=== PATIENT | female | born 1950 | race Caucasian/White ===

== ENCOUNTER → 2017-04-16 | Outpatient (CLI) | payer MEDICARE, MEDICAID ==
--- NOTE | 2017-04-16 16:35 | RAD ---
Procedure: XR CHEST 2 VIEWS Exam Date: 04/16/2017 3:20 PM CDT Ordering Provider: Keisha Rhodes Clinical Indication: ACUTE EXACERBATION OF COPD Comparison: None Findings: Lungs are hyperexpanded. No lobar consolidation, pleural effusion, or pneumothorax. Heart size is within normal limits. No acute osseous abnormality. Impression: COPD. No acute airspace disease. Electronically signed by: Doroteo Alcocer MD 04/16/2017 4:35 PM CDT
== END ==
LOC: YCFC.O 15:12
PROVIDERS: ATTEND Nurse Practitioner Family
DX: J44.1 Chronic obstructive pulmonary disease with (acute) exacerbation (principal)

== ENCOUNTER → 2017-09-23 | Outpatient (CLI) | payer MEDICARE, MEDICAID ==
--- NOTE | 2017-09-24 04:46 | RAD ---
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 Mild degenerative changes of the acromioclavicular joint. Unremarkable glenohumeral joint. Electronically signed by: Dillon Meyer MD 09/24/2017 4:45 AM RECEIVING TANK OPERATOR
== END | disposition home or self-care (01) ==
LOC: LAB.O 14:20
DX: M25.50 Pain in unspecified joint (principal); M25.512 Pain in left shoulder

== ENCOUNTER → 2017-12-08 | Outpatient (CLI) | payer MEDICARE, MEDICAID ==
--- NOTE | 2017-12-10 08:18 | RAD ---
History: COPD. Chest x-ray: PA and lateral views are compared with April 2017 study. Patchy atelectasis or scarring is present in the left lower lung, grossly stable. Lung volumes are well maintained with diminished pulmonary markings left upper lung, stable. No airspace disease is identified. No significant pleural effusion is seen. The cardiomediastinal silhouette is normal. Diffuse osteopenia is apparent. IMPRESSION: Stable chest since 04/2017. Electronically signed by: Jesenia Townsend MD 12/10/2017 8:17 AM [facility] Workstation: [facility]
== END ==
LOC: YCFC.O 11:55
DX: J44.1 Chronic obstructive pulmonary disease with (acute) exacerbation (principal)

== ENCOUNTER 2018-06-10 16:10 | Emergency (ER) | payer MEDICARE, MEDICAID ==
[2018-06-10 16:30] VITALS: BP 124/67; TEMP 99; O2SAT 95
--- NOTE | 2018-06-10 16:55 | ED.PDOC ---
History of Present Illness - General Chief Complaint: Skin/Abrasion/Tear Stated Complaint: Cut to right hand Time Seen by Provider: 06/10/18 16:55 Source: patient Exam Limitations: no limitations - History of Present Illness Initial Comments: Kendy Jean 67 y/o female struck a chain link fence accidentally and had tiny skin laceratin top of her right hand with burning pain. Timing/Duration: just prior to arrival Severity: mild Location: hands - right Improving Factors: nothing Worsening Factors: nothing Associated Symptoms: other - skin tear Allergies/Adverse Reactions: Allergies Coconut Oil Allergy (Verified 02/17/16 12:24) Hives Pregabalin [From Lyrica] Allergy (Verified 06/10/18 16:31) Other Hallucinations scorpions Allergy (Uncoded 02/17/16 12:24) Other Paralysis sx's. Tegaderm Allergy (Uncoded 06/10/18 16:32) Rash Home Medications: Ambulatory Orders Duloxetine HCl 90 mg PO DAILY 11/24/14 Pravastatin Sodium [Pravachol] 40 mg PO BEDTIME 11/24/14 Buspirone HCl 15 mg PO DAILY PRN 11/30/15 Fluticasone Propionate (Nasal) [Fluticasone Propionate] 50 mcg NA DAILY HYDROcodone 10MG/APAP 325MG [[place] 10/325] 10 tab PO PRN PRN 11/30/15 Tiotropium [place] Monohydrate [Spiriva Respimat] 2.5 mcg IN PRN PRN 11/30/15 Zolpidem Tartrate 10 mg PO BEDTIME 11/30/15 Review of Systems - Review of Systems Constitutional: States: no symptoms reported EENTM: States: no symptoms reported Respiratory: States: no symptoms reported Skin: States: see HPI All other Systems: Reviewed and Negative, No Change from Baseline Past Medical History (General) - Patient Medical History Hx Seizures: No Hx Stroke: No Hx Dementia: No Hx Asthma: No Hx of COPD: No Hx Cardiac Disorders: Yes - hypercholesterolemia Hx Congestive Heart Failure: No Hx Pacemaker: No Hx Hypertension: Yes Hx Thyroid Disease: No Hx Diabetes: No Hx Gastroesophageal Reflux: Yes Hx Renal Disease: No Hx Cancer: Yes - Melanoma removed 2018 Hx of HIV: No Hx Hepatitis C: No Hx MRSA: No Surgical History: appendectomy, other - excision melanoma,hysterectomy - Vaccination History Hx Tetanus, Diphtheria Vaccination: - 06/10/18 Hx Influenza Vaccination: Yes - 2016 Hx Pneumococcal Vaccination: Yes - 2014 - Social History Hx Tobacco Use: Yes Hx Chewing Tobacco Use: No Hx Alcohol Use: No Hx Substance Use: No Hx Depression: Yes Hx Physical Abuse: No Hx Emotional Abuse: No Hx Suspected Abuse: No - Female History Patient : No Family Medical History - Family History Mother Living Status: Hx Family Hypertension: Yes Hx Cardiac Disease: Yes - parents Father Living Status: Hx Family Hypertension: Yes Hx Family Cancer: Yes - skin cancer Physical Exam - Physical Exam General Appearance: Alert, Comfortable, No apparent distress Eyes, Ears, Nose, Throat Exam: normal ENT inspection Neck: non-tender, full range of motion, supple, normal inspection Cardiovascular/Chest: normal peripheral pulses, regular rate, rhythm, no murmur Respiratory: chest non-tender, lungs clear Gastrointestinal/Abdominal: non tender, soft Back Exam: normal inspection, no CVA tenderness Extremity: non-tender, no calf tenderness Neurologic: alert, oriented x 3 Skin Exam: warm/dry, normal color Skin Problem Location: other - hand right Skin Character: other - skin tear Progress - Progress Progress: 06/10/18 17:07 Vital Signs - 8 hr 06/10/18 16:20 Temperature 99.0 F Pulse Rate [ 85 Left Radial] Respiratory 18 Rate Blood Pressure 124/67 [Right Arm] O2 Sat by Pulse 95 Oximetry 06/10/18 17:08 skintear cleanse with sterile saline covered with band aid Departure - Departure Clinical Impression: Skin tear of hand without complication Qualifiers: Encounter type: initial encounter Laterality: right Qualified Code(s): S61.411A - Laceration without foreign body of right hand, initial encounter Time of Disposition: 17:09 Disposition: Discharge to Home or Self Care Condition: Fair Departure Forms: ED Discharge - Pt. Copy, Patient Portal Self Enrollment Instructions: Wound Care (DC) Referrals: Yves Delaney MD [Primary Care Provider] - 1-2 Weeks Home Medications: Ambulatory Orders Duloxetine HCl 90 mg PO DAILY 11/24/14 Pravastatin Sodium [Pravachol] 40 mg PO BEDTIME 11/24/14 Buspirone HCl 15 mg PO DAILY PRN 11/30/15 Fluticasone Propionate (Nasal) [Fluticasone Propionate] 50 mcg NA DAILY HYDROcodone 10MG/APAP 325MG [[place] 10/325] 10 tab PO PRN PRN 11/30/15 Tiotropium [place] Monohydrate [Spiriva Respimat] 2.5 mcg IN PRN PRN 11/30/15 Zolpidem Tartrate 10 mg PO BEDTIME 11/30/15 Additional Instructions: Follow up with primary Md 14 June 2018 as needed
[2018-06-10] MEDS ORDERED: TETANUS,DIPHTHERIA,PERTUSSIS 1 EA SYG IM ONE (17:08)
== END 2018-06-10 17:40 | disposition home or self-care (01) ==
LOC: ER 16:10
DX: S61.411A Laceration without foreign body of right hand, initial encounter (principal); Z23 Encounter for immunization; I10 Essential (primary) hypertension; E78.00 Pure hypercholesterolemia, unspecified; Z85.828 Personal history of other malignant neoplasm of skin; Z87.891 Personal history of nicotine dependence; W22.8XXA Striking against or struck by other objects, initial encounter; Y92.9 Unspecified place or not applicable